=== PATIENT | male | born 1935 | race Caucasian/White ===

== ENCOUNTER 2019-08-28 08:00 | Outpatient (CLI) | payer MEDICARE, MEDICAID | END 2019-08-28 23:59 | disposition home or self-care (01) | LOC: LAB.WCP 08:00 | PROVIDERS: ATTEND Family Medicine | DX: I48.91 Unspecified atrial fibrillation (principal); Z79.01 Long term (current) use of anticoagulants ==

== ENCOUNTER 2019-09-11 08:00 | Outpatient (CLI) | payer MEDICARE, MEDICAID | END 2019-09-11 23:59 | disposition home or self-care (01) | LOC: LAB.WCP 08:00 | PROVIDERS: ATTEND Family Medicine | DX: I48.91 Unspecified atrial fibrillation (principal); Z79.01 Long term (current) use of anticoagulants ==

== ENCOUNTER 2019-09-18 08:00 | Outpatient (CLI) | payer MEDICARE, MEDICAID | END 2019-09-18 23:59 | disposition home or self-care (01) | LOC: LAB.WCP 08:00 | PROVIDERS: ATTEND Family Medicine | DX: I48.91 Unspecified atrial fibrillation (principal); Z79.01 Long term (current) use of anticoagulants ==

== ENCOUNTER 2019-10-01 08:00 | Outpatient (CLI) | payer MEDICARE, MEDICAID | END 2019-10-01 23:59 | disposition home or self-care (01) | LOC: LAB.WCP 08:00 | PROVIDERS: ATTEND Family Medicine | DX: I48.91 Unspecified atrial fibrillation (principal); Z79.01 Long term (current) use of anticoagulants ==

== ENCOUNTER 2019-10-09 08:00 | Outpatient (CLI) | payer MEDICARE, MEDICAID ==
[2019-10-09 12:30] LABS: CALCIUM 8.7 mg/dL (8.5-10.3); CREATININE 2.3 mg/dL (0.6-1.2)
[2019-10-09 12:47] LABS: HB2 TOTAL 12.4 g/dL; HEMOGLOBIN A1C 0.66 g/dL
[2019-10-09 12:53] LABS: CREATININE,URINE 85.2 mg/dL; MICROALBUM/CREATININE RATIO,UR 416.7 ug/mg (<30.0); MICROALBUMIN,URINE 35.5 mg/dL (0-300.0)
== END 2019-10-09 23:59 | disposition home or self-care (01) ==
LOC: LAB.WCP 08:00
PROVIDERS: ATTEND Family Medicine
DX: E11.9 Type 2 diabetes mellitus without complications (principal)
CPT/HCPCS: 36415; 80048; 82043; 82570; 83036

== ENCOUNTER 2019-10-09 15:05 | Outpatient (CLI) | payer MEDICARE, MEDICAID | END 2019-10-09 15:06 | disposition critical access hospital (66) | LOC: EMS 15:05 | PROVIDERS: ATTEND Surgery | DX: R79.89 Other specified abnormal findings of blood chemistry (principal) | CPT/HCPCS: A0425; A0429 ==

== ENCOUNTER 2019-10-09 15:24 | Emergency (ER) | payer MEDICARE, MEDICAID ==
[2019-10-09 15:34] VITALS: BP 117/72
--- NOTE | 2019-10-09 15:34 | ED Physician Documentation ---
History of Present Illness - Stated complaint Stated Complaint: ABN BLOOD WORK - History obtained from History obtained from: Patient, EMS - Additonal information Additional information: Patient is brought to the emergency department by EMS after patient's care facility was notified by primary care physician's office that patient's "creatinine is too low". Medics state that they went back and forth with the retirement staff about whether this was the actual concern, and that they insisted that it was. Patient states he feels "great". He states that he has not had any shortness of breath or generalized weakness. His paperwork reveals that he has a history of chronic renal failure, but he is not on dialysis. Patient denies any vomiting or diarrhea recently no shortness of breath. No cough or fever. No abdominal pain or chest pain. No other complaints at this time. Patient states he has been making urine and that he really needs to urinate at this time. Review of Systems Ten Systems: 10 systems reviewed and negative Constitutional: reports: Reviewed and negative Eyes: reports: Reviewed and negative Ears: reports: Reviewed and negative Nose: reports: Reviewed and negative Throat: reports: Reviewed and negative Cardiac: reports: Reviewed and negative Respiratory: reports: Reviewed and negative GI: reports: Reviewed and negative : reports: Reviewed and negative Skin: reports: Reviewed and negative Musculoskeletal: reports: Reviewed and negative Neurologic: reports: Reviewed and negative Psychiatric: reports: Reviewed and negative Endocrine: reports: Reviewed and negative Immunocompromised: reports: Reviewed and negative PD PAST MEDICAL HISTORY - Allergies Allergies/Adverse Reactions: Allergies Allergy/AdvReac Type Severity Reaction Status Date / Time No Known Drug Allergies Allergy Verified 10/09/19 15:34 PD ED PE NORMAL - Vitals Vital signs reviewed: Yes - General General: No acute distress, Other - HEENT HEENT: Atraumatic, PERRL, EOMI, Moist mucous membranes - Neck Neck: Supple, no meningeal sign - Cardiac Cardiac: RRR, No murmur, Strong equal pulses - Respiratory Respiratory: No respiratory distress, Clear bilaterally - Abdomen Abdomen: Soft, Non tender, Non distended - Derm Derm: Normal color, Warm and dry, No rash - Extremities Extremities: No deformity - Neuro Neuro: Other (Neurologic exam grossly intact. Patient is alert and answers questions appropriately. He appears well.) - Psych Psych: Normal mood, Normal affect Results - Vitals Vitals: Oxygen O2 Source Room air - Labs Labs: Microbiology 10/09/19 15:50 Urine Culture - Preliminary Urine,Catheterized Pseudomonas Aeruginosa Escherichia Coli Laboratory Tests 10/09/19 10/09/19 10/09/19 15:50 17:06 17:06 WBC 7.1 RBC 3.66 L Hgb 11.1 L Hct 33.7 L MCV 92.1 MCH 30.3 MCHC 32.9 RDW 15.0 Plt Count 208 MPV 10.4 Neut # (Auto) 4.2 Lymph # (Auto) 2.0 [place] # (Auto) 0.6 Eos # (Auto) 0.3 Baso # (Auto) 0.0 Absolute Nucleated RBC 0.00 Nucleated RBC % 0.0 Sodium 135 Potassium 4.4 Chloride 107 Carbon Dioxide 21 Anion Gap 7.0 BUN 57 H Creatinine 2.5 H Estimated GFR (MDRD) 25 L Glucose 155 H Calcium 8.6 Total Bilirubin 0.7 AST 11 ALT 14 Alkaline Phosphatase 95 Total Protein 7.5 Albumin 3.5 Globulin 4.0 Albumin/Globulin Ratio 0.9 L Lipase 45 Urine Color YELLOW Urine Clarity HAZY Urine pH 7.0 Ur Specific [place] 1.015 Urine Protein 30 H Urine Glucose (UA) NEGATIVE Urine Ketones TRACE Urine Occult Blood MODERATE H Urine Nitrite POSITIVE H Urine Bilirubin NEGATIVE Urine Urobilinogen 0.2 (NORMAL) Ur Leukocyte Esterase LARGE H Urine RBC 11-25 H Urine WBC >25 H Urine WBC Clumps PRESENT Ur Squamous Epith Cells NONE SEEN Urine Bacteria Many H Ur Microscopic Review INDICATED Urine Culture Comments INDICATED PD MEDICAL DECISION MAKING - ED course Complexity details: reviewed results, re-evaluated patient, considered differential, d/w patient ED course: The patient was extremely well-appearing in the emergency department, and did produce urine, which was dark yellow. I suspected that he was likely somewhat volume depleted. Unfortunately, we had not received communication from the patient's primary care physician prior to the pt's arrival, and the patient's physician was unreachable by phone, despite our calls to his office. We did not have any old records on the patient in terms of prior creatinine levels, so it was unclear exactly what his usual creatinine is, as we were unable to get records from the PCP's office. We received notification from the retirement where the patient resides that his creatinine had been found to be 2.3. The patient did have listed as a diagnosis "chronic renal failure". The patient had blood drawn, but unfortunately, due to extremely difficult peripheral access, we were not able to get an IV. As such, the patient was given a total of 1 quart of oral fluids here in the emergency department, after which he did produce more urine progressively collection systems modeler in color. The blood drawn when the patient arrived was done with great difficulty, and showed a creatinine of 2.5. Pt refused repeat draw for re-eval. However, the patient has been able to drink here and has made urine. The patient already has a diagnosis of chronic renal failure and has no concerning electrolyte abnormalities. He is drinking and making urine. In consideration of all of these factors, I do not feel inpatient stay will be helpful at this point. I have advised the patient's care facility that they need to be sure the patient is getting plenty of water to drink, ideally at least 6 to 8 cups of water per day. He will need to see his primary doctor and have his creatinine rechecked within the week to be sure that it is at least stable if not improving. Departure - Departure Disposition: 01 Home, Self Care Clinical Impression: Dehydration Chronic renal failure Qualifiers: Chronic kidney disease stage: unspecified stage Qualified Code(s): N18.9 - Chronic kidney disease, unspecified Condition: Stable Instructions: ED Renal Failure Chronic, ED Dehydration Comments: Your kidneys today have been found to be functioning somewhat slowly, which is not a new problem for you. Unfortunately, your doctor's office did not send any old laboratory values to the emergency department with which to compare today's values. However, you are producing urine well and there is no evidence that your kidneys are "shut down" and in need of dialysis at this time. It does appear that you have been quite dehydrated. You have been given quite a bit of fluid today in the emergency department to help rehydrate. Is very important that you drink lots of water, and that the staff at your care facility encourages you to drink 6 to 8 cups of water a day, at least. You will need to follow-up with your primary doctor within the next week to have your labs rechecked and be sure that you are returning to your baseline kidney function. Discharge Date/Time: 10/09/19 18:56
[2019-10-09] MEDS ORDERED: SODIUM CHLORIDE 0.9% 1,000 ML IV STA (15:35)
[2019-10-09 15:59] LABS: BILIRUBIN,URINE NEGATIVE (NEGATIVE); GLUCOSE, URINE (UA) NEGATIVE (NEGATIVE); KETONES,URINE (UA) TRACE mg/dL (NEGATIVE); LEUKOCYTE ESTERASE, URINE LARGE (NEGATIVE); NITRITE,URINE POSITIVE (NEGATIVE); OCCULT BLOOD,URINE MODERATE (NEGATIVE); PROTEIN,URINE 30 mg/dL (NEGATIVE); UROBILINOGEN,URINE 0.2 (NORMAL) E.U./dL (NORMAL)
[2019-10-09 16:00] LABS: CLARITY,URINE HAZY (CLEAR)
[2019-10-09 16:11] LABS: BACTERIA,URINE Many /HPF (None Seen); SQUAMOUS EPITHELIAL CELL,UR NONE SEEN (<= Few); WBC CLUMPS,URINE PRESENT
[2019-10-09 17:12] LABS: BASOPHILS % (AUTO) 0.4 %; EOSINOPHILS # (AUTO) 0.3 10^3/uL (0.0-0.7); HGB - HEMOGLOBIN 11.1 g/dL (14.0-18.0); MEAN CORPUSCULAR HEMOGLOBIN 30.3 pg (27.0-31.0); MEAN CORPUSCULAR HGB CONC 32.9 g/dL (32.0-36.0); MEAN CORPUSCULAR VOLUME 92.1 fL (80.0-94.0); MEAN PLATELET VOLUME 10.4 fL (7.4-11.4); MONOCYTES # (AUTO) 0.6 10^3/uL (0.0-1.0); MONOCYTES % (AUTO) 8.6 %; NEUTROPHILS # (AUTO) 4.2 10^3/uL (1.5-6.6); NEUTROPHILS % (AUTO) 58.7 %; PLT - PLATELET COUNT 208 10^3/uL (130-450); RED BLOOD COUNT 3.66 10^6/uL (4.70-6.10); WHITE BLOOD COUNT 7.1 x10^3/uL (4.8-10.8)
[2019-10-09 17:25] LABS: ALBUMIN 3.5 g/dL (3.2-5.5); ALBUMIN/GLOBULIN RATIO 0.9 (1.0-2.2); BILIRUBIN,TOTAL 0.7 mg/dL (0.2-1.0); CALCIUM 8.6 mg/dL (8.5-10.3); CREATININE 2.5 mg/dL (0.6-1.2); TOTAL PROTEIN 7.5 g/dL (6.7-8.2)
== END 2019-10-09 18:56 | disposition home or self-care (01) ==
LOC: EDUNIT# → ED 15:24
DX: E86.0 Dehydration (principal); N18.9 Chronic kidney disease, unspecified
CPT/HCPCS: 36415; 80053; 81001; 81003; 83690; 85025; 87077; 87086; 87181; 99283

== ENCOUNTER 2019-10-13 08:00 | Outpatient (CLI) | payer MEDICARE | END 2019-10-13 23:59 | disposition home or self-care (01) | LOC: LAB.WCP 08:00 | PROVIDERS: ATTEND Family Medicine | DX: Z79.01 Long term (current) use of anticoagulants (principal); I48.91 Unspecified atrial fibrillation ==

== ENCOUNTER 2019-11-14 01:31 | Outpatient (CLI) | payer MEDICARE, MEDICAID | END 2019-11-14 01:32 | disposition critical access hospital (66) | LOC: EMS 01:31 | PROVIDERS: ATTEND Surgery | DX: S00.12XA Contusion of left eyelid and periocular area, initial encounter (principal); W06.XXXA Fall from bed, initial encounter; Y92.092 Bedroom in other non-institutional residence as the place of occurrence of the external cause | CPT/HCPCS: A0425; A0429 ==

== ENCOUNTER 2019-11-14 01:48 | Emergency (ER) | payer MEDICARE, MEDICAID ==
--- NOTE | 2019-11-14 01:56 | ED Physician Documentation ---
PD HPI Fall - Stated complaint Stated Complaint: GLF/CONTUSION L EYEBROW - History obtained from History obtained from: EMS - History of Present Illness Mechanism of injury: Other (fell out of bed) Fall distance: From bed Where injury occurred: Home Timing - onset: How many minutes ago (approximately 20-30 minutes DRAPERY SEWER HAND) Injury(ies) location: Face Pain level now: 0 Associated symptoms: No: AMS, Weakness Contributing factors: Anticoagulated - Additional information Additional information: reportedly fell out of bed, approximately 12-15" height. Patient has dementia and thus cannot contribute reliably to H+P. He says he does not know why he is here, does not recall falling and denies any pain or injury (despite obvious le ft supraorbital swelling).Patient is on warfarin. Review of Systems Unable to obtain: Dementia PD PAST MEDICAL HISTORY - Past Medical History Cardiovascular: Hypertension Neuro: Dementia - Present Medications Home Medications: Ambulatory Orders Medication Instructions Recorded Confirmed Cholecalciferol [Vitamin D3] 1,000 unit PO 11/14/19 Cyanocobalamin (Vitamin B-12) 2,000 mcg SL DAILY 11/14/19 11/14/19 [Vitamin B-12 (1000 mcg sublingual)] Levothyroxine [Synthroid] 100 mcg PO DAILY 11/14/19 11/14/19 Warfarin Sodium 4 mg PO DAILY 11/14/19 11/14/19 metFORMIN [Glucophage] 1,000 mg PO DAILY 11/14/19 11/14/19 - Allergies Allergies/Adverse Reactions: Allergies Allergy/AdvReac Type Severity Reaction Status Date / Time No Known Drug Allergies Allergy Verified 10/09/19 15:34 - Social History Does the pt smoke?: No Smoking Status: Never smoker Does the pt drink ETOH?: No Does the pt have substance abuse?: No - Immunizations Immunizations are current?: Yes - POLST Patient has POLST: No PD ED PE NORMAL - Vitals Vital signs reviewed: Yes - General General: No acute distress, Well developed/nourished, Other (awake, alert, confused. NAD, pleasant and calm) - HEENT HEENT: PERRL, EOMI, Moist mucous membranes - Neck Neck: No bony TTP - Cardiac Cardiac: RRR, No murmur - Respiratory Respiratory: No respiratory distress, Clear bilaterally - Abdomen Abdomen: Soft, Non tender - Back Back: No spinal TTP - Extremities Extremities: No deformity, No tenderness to palpate, Normal ROM s pain PD ED PE EXPANDED - HEENT HEENT Visual: 1 - bruising, swelling, tenderness Results - Vitals Vitals: Vital Signs - 24 hr 11/14/19 11/14/19 01:54 04:42 Temperature 36.4 C L 36.5 C Heart Rate 63 62 Respiratory 18 14 Rate Blood Pressure 153/93 H 135/104 H O2 Saturation 100 98 Oxygen O2 Source Room air - Labs Labs: Laboratory Tests 11/14/19 01:50 PT 40.8 H INR 3.9 H APTT 35.4 H - Rads (name of study) CT head Radiology: Prelim report reviewed, See rad report CT cervical spine Radiology: Prelim report reviewed, See rad report PD MEDICAL DECISION MAKING - ED course Complexity details: reviewed results, re-evaluated patient, considered differential, d/w patient ED course: After CT results available, patient reevaluated. He remains in NAD, pleasant although confused. He is smiling and continues to deny any discomfort. Cervical collar removed. Departure - Departure Disposition: 01 Home, Self Care Clinical Impression: Head injury Qualifiers: Encounter type: initial encounter Qualified Code(s): S09.90XA - Unspecified injury of head, initial encounter Facial contusion Qualifiers: Encounter type: initial encounter Qualified Code(s): S00.83XA - Contusion of other part of head, initial encounter Condition: Good Instructions: ED Head Injury Closed Discharge Date/Time: 11/14/19 04:42
[2019-11-14 02:14] LABS: INR 3.9 (0.8-1.2); PT - PROTHROMBIN TIME 40.8 secs (9.9-12.6)
[2019-11-14 02:22] LABS: PARTIAL THROMBOPLASTIN TIME 35.4 secs (24.9-33.3)
[2019-11-14 04:43] VITALS: BP 135/104
--- NOTE | 2019-11-14 08:10 | CT Report ---
PROCEDURE: HEAD WO INDICATIONS: Trauma, fall, head injury TECHNIQUE: Noncontrast 4.5 mm thick angled axial sections acquired from the foramen magnum to the vertex. For r adiation dose reduction, the following was used: automated exposure control, adjustment of mA and/or kV according to patient size. COMPARISON: None. FINDINGS: Image quality: Excellent. CSF spaces: Basal cisterns are patent. No extra-axial fluid collections. Ventricles are normal in size and shape. Brain: No midline shift. No intracranial masses or hemorrhage. Meléndez-white matter interface is norm al. Skull and face: Left anterior frontal scalp and left periorbital soft tissue edema and hematomas. Horace varium and visualized facial bones are intact, without suspicious lesions. Sinuses: Visualized sinuses and mastoids are clear. IMPRESSION: Left anterior frontal and periorbital soft tissue edema and hematoma. No intraorbital in jury. No acute intracranial finding. Reviewed by: Ross Brown MD on 11/14/2019 8:09 AM PDT Approved by: Ross Brown MD on 11/14/2019 8:09 AM PDT Station ID: [id number]
--- NOTE | 2019-11-14 08:11 | CT Report ---
PROCEDURE: CERVICAL SPINE WO INDICATIONS: fall, head injury, dementia TECHNIQUE: Noncontrast 3 mm thick sections acquired from the skull base to the T4 level. Sagittal and coronal r eformats were then constructed. For radiation dose reduction, the following was used: automated exp osure control, adjustment of mA and/or kV according to patient size. COMPARISON: None. FINDINGS: Image quality: Excellent. Bones: No fractures or dislocations. Visualized superior ribs are intact. Extensive degenerative c hanges in the cervical spine. Soft tissues: Prevertebral soft tissues are normal in thickness. No paravertebral hematomas. No ap ical pneumothoraces. IMPRESSION: No CT evidence of acute or metastatic cervical spine injury. Reviewed by: Ross Brown MD on 11/14/2019 8:10 AM PDT Approved by: Ross Brown MD on 11/14/2019 8:10 AM PDT Station ID: [id number]
== END 2019-11-14 04:42 | disposition home or self-care (01) ==
LOC: EDUNIT# → ED 01:48
DX: S09.90XA Unspecified injury of head, initial encounter (principal); S00.83XA Contusion of other part of head, initial encounter; W06.XXXA Fall from bed, initial encounter; Y92.122 Bedroom in nursing home as the place of occurrence of the external cause; M50.30 Other cervical disc degeneration, unspecified cervical region; F03.90 Unspecified dementia, unspecified severity, without behavioral disturbance, psychotic disturbance, mood disturbance, and anxiety; Z79.01 Long term (current) use of anticoagulants
CPT/HCPCS: 36415; 70450; 72125; 85610; 85730; 99281; 99284

== ENCOUNTER 2019-11-14 04:44 | Outpatient (CLI) | payer MEDICARE, MEDICAID | END 2019-11-14 04:45 | disposition home or self-care (01) | LOC: EMS 04:44 | PROVIDERS: ATTEND Surgery | DX: S00.12XA Contusion of left eyelid and periocular area, initial encounter (principal); R53.1 Weakness; F03.90 Unspecified dementia, unspecified severity, without behavioral disturbance, psychotic disturbance, mood disturbance, and anxiety; W18.30XA Fall on same level, unspecified, initial encounter | CPT/HCPCS: A0425; A0428 ==

== ENCOUNTER 2019-11-21 08:00 | Outpatient (CLI) | payer MEDICARE, MEDICAID | END 2019-11-21 23:59 | disposition home or self-care (01) | LOC: LAB.R 08:00 | PROVIDERS: ATTEND Family Medicine | DX: N39.0 Urinary tract infection, site not specified (principal) | CPT/HCPCS: 87086; 87181 ==

== ENCOUNTER 2019-11-28 10:45 | Outpatient (CLI) | payer MEDICARE, MEDICAID ==
[2019-11-28 18:21] LABS: BASOPHILS # (AUTO) 0.1 10^3/uL (0.0-0.1); BASOPHILS % (AUTO) 0.6 %; EOSINOPHILS # (AUTO) 0.3 10^3/uL (0.0-0.7); EOSINOPHILS % (AUTO) 2.8 %; HGB - HEMOGLOBIN 11.6 g/dL (14.0-18.0); LYMPHOCYTES # (AUTO) 1.7 10^3/uL (1.5-3.5); LYMPHOCYTES % (AUTO) 19.6 %; MEAN CORPUSCULAR HEMOGLOBIN 29.7 pg (27.0-31.0); MEAN CORPUSCULAR HGB CONC 31.1 g/dL (32.0-36.0); MEAN CORPUSCULAR VOLUME 95.4 fL (80.0-94.0); MEAN PLATELET VOLUME 10.8 fL (7.4-11.4); MONOCYTES # (AUTO) 0.6 10^3/uL (0.0-1.0); MONOCYTES % (AUTO) 6.3 %; NEUTROPHILS # (AUTO) 6.2 10^3/uL (1.5-6.6); NEUTROPHILS % (AUTO) 70.1 %; PLT - PLATELET COUNT 381 10^3/uL (130-450); RED BLOOD COUNT 3.91 10^6/uL (4.70-6.10); RED CELL DISTRIBUTION WIDTH 14.8 % (12.0-15.0); WHITE BLOOD COUNT 8.9 x10^3/uL (4.8-10.8)
[2019-11-28 18:50] LABS: PT - PROTHROMBIN TIME 48.5 secs (9.9-12.6)
[2019-11-28 18:54] LABS: ALBUMIN 3.6 g/dL (3.2-5.5); ALBUMIN/GLOBULIN RATIO 0.8 (1.0-2.2); BILIRUBIN,TOTAL 0.8 mg/dL (0.2-1.0); CALCIUM 9.7 mg/dL (8.5-10.3); CREATININE 2.3 mg/dL (0.6-1.2)
[2019-11-28 20:08] LABS: INR 4.8 (0.8-1.2)
== END 2019-11-28 23:59 | disposition home or self-care (01) ==
LOC: LAB.R 10:45
PROVIDERS: ATTEND Family Medicine
DX: C61 Malignant neoplasm of prostate (principal)
CPT/HCPCS: 80053; 85025; 85610

== ENCOUNTER 2020-02-20 10:30 | Outpatient (CLI) | payer MEDICARE, MEDICAID ==
[2020-02-20 11:56] LABS: BILIRUBIN,URINE NEGATIVE (NEGATIVE); GLUCOSE, URINE (UA) NEGATIVE (NEGATIVE); KETONES,URINE (UA) NEGATIVE (NEGATIVE); LEUKOCYTE ESTERASE, URINE LARGE (NEGATIVE); NITRITE,URINE POSITIVE (NEGATIVE); OCCULT BLOOD,URINE LARGE (NEGATIVE); PH,URINE 5.5 PH (5.0-7.5); PROTEIN,URINE 30 mg/dL (NEGATIVE); UROBILINOGEN,URINE 0.2 (NORMAL) E.U./dL (NORMAL)
[2020-02-20 11:57] LABS: CLARITY,URINE CLOUDY (CLEAR)
[2020-02-20 12:04] LABS: BACTERIA,URINE Moderate /HPF (None Seen); RBC,URINE TNTC /HPF (0-5); SQUAMOUS EPITHELIAL CELL,UR RARE Squamous (<= Few)
== END 2020-02-20 23:59 | disposition home or self-care (01) ==
LOC: LAB.R 10:30
PROVIDERS: ATTEND Urology
DX: N39.0 Urinary tract infection, site not specified (principal)
CPT/HCPCS: 81001; 81003; 87077; 87086; 87181

== ENCOUNTER 2020-02-26 10:45 | Outpatient (CLI) | payer MEDICARE, MEDICAID ==
[2020-02-26 18:57] LABS: GLUCOSE, URINE (UA) NEGATIVE (NEGATIVE); KETONES,URINE (UA) NEGATIVE (NEGATIVE); LEUKOCYTE ESTERASE, URINE LARGE (NEGATIVE); NITRITE,URINE POSITIVE (NEGATIVE); OCCULT BLOOD,URINE LARGE (NEGATIVE); PROTEIN,URINE 100 mg/dL (NEGATIVE); UROBILINOGEN,URINE 0.2 (NORMAL) E.U./dL (NORMAL)
[2020-02-26 18:59] LABS: CLARITY,URINE HAZY (CLEAR)
[2020-02-26 19:05] LABS: BILIRUBIN,URINE NEGATIVE (NEGATIVE); ICTOTEST,URINE NEGATIVE
[2020-02-26 19:48] LABS: BACTERIA,URINE Few /HPF (None Seen); RBC,URINE TNTC /HPF (0-5); SQUAMOUS EPITHELIAL CELL,UR NONE SEEN (<= Few)
== END 2020-02-26 23:59 | disposition home or self-care (01) ==
LOC: LAB.R 10:45
PROVIDERS: ATTEND Nurse Practitioner Adult Health
DX: N39.0 Urinary tract infection, site not specified (principal)
CPT/HCPCS: 81001; 81003; 87077; 87086; 87181

== ENCOUNTER 2020-03-03 22:47 | Outpatient (CLI) | payer MEDICARE, MEDICAID | END 2020-03-03 22:48 | disposition critical access hospital (66) | LOC: EMS 22:47 | PROVIDERS: ATTEND Surgery | DX: S09.90XA Unspecified injury of head, initial encounter (principal); W01.0XXA Fall on same level from slipping, tripping and stumbling without subsequent striking against object, initial encounter | CPT/HCPCS: A0425; A0429 ==

== ENCOUNTER 2020-03-03 23:05 | Emergency (ER) | payer MEDICARE, MEDICAID ==
--- NOTE | 2020-03-03 23:15 | ED Physician Documentation ---
PD HPI HEAD INJURY - Stated complaint Stated Complaint: GLF/ HEAD INJ - History obtained from History obtained from: EMS - History of Present Illness Mechanism of head injury: Fell Where head injury occurred: Home Timing - onset: Today Location of injury: Back Quality of pain: Pain Associated symptoms: Neck pain. No: LOC, AMS, Amnesia, Nausea / vomiting, Paresthesias, Seizures, Ear drainage, Nasal drainage Symptoms improve with: Rest Symptoms worsen with: Palpation, Movement Contributing factors: Anticoagulated Similar symptoms before: Diagnosis (mechanical fall) Recently seen: Not recently seen - Additional information Additional information: 84-year-old male resident of [facility] with a history of advanced dementia has had a witnessed fall this evening he apparently tripped over his Del Rosario bag and landed on the back of his head. He did not have loss of consciousness he is on Coumadin and he is brought to the hospital for evaluation. The patient himself says he does not have any specific symptoms. Review of Systems Unable to obtain: Dementia PD PAST MEDICAL HISTORY - Past Medical History Cardiovascular: Hypertension Neuro: Dementia - Present Medications Home Medications: Ambulatory Orders Medication Instructions Recorded Confirmed Cholecalciferol [Vitamin D3] 1,000 unit PO 11/14/19 Cyanocobalamin (Vitamin B-12) 2,000 mcg SL DAILY 11/14/19 11/14/19 [Vitamin B-12 (1000 mcg sublingual)] Levothyroxine [Synthroid] 100 mcg PO DAILY 11/14/19 03/03/20 Warfarin Sodium 4 mg PO DAILY 11/14/19 03/03/20 Glipizide 5 mg PO DAILY 03/03/20 03/03/20 Nitrofurantoin [Macrobid] 100 mg PO BID 03/03/20 03/03/20 - Allergies Allergies/Adverse Reactions: Allergies Allergy/AdvReac Type Severity Reaction Status Date / Time No Known Drug Allergies Allergy Verified 03/03/20 23:22 - Social History Does the pt smoke?: No Smoking Status: Never smoker Does the pt drink ETOH?: No Does the pt have substance abuse?: No - Immunizations Immunizations are current?: Yes - POLST Patient has POLST: No PD ED PE NORMAL - Vitals Vital signs reviewed: Yes - General General: No acute distress, Well developed/nourished - HEENT HEENT: PERRL, EOMI, Other (mild pain to palpation of the occiput) - Neck Neck: Supple, no meningeal sign, Other (tenderness to the upper C-spine or pain with hair pulling) - Cardiac Cardiac: No murmur, Other (irreguarly irregular heart ) - Respiratory Respiratory: No respiratory distress, Clear bilaterally - Abdomen Abdomen: Normal bowel sounds, Soft, Non tender, Non distended, No organomegaly - Back Back: No CVA TTP, No spinal TTP - Derm Derm: Normal color, Warm and dry, No rash - Extremities Extremities: No deformity, No edema - Neuro Neuro: photo finish photographer 2-12 intact, No motor deficit, No sensory deficit, Normal speech Eye Opening: Spontaneous Motor: Obeys Commands Verbal: Confused GCS Score: 14 - Psych Psych: Normal mood, Normal affect Results - Vitals Vitals: Vital Signs - 24 hr 03/03/20 03/03/20 23:17 23:32 Temperature 36.3 C L 36.3 C L Heart Rate 66 66 Respiratory 18 18 Rate Blood Pressure 159/100 H 159/100 H O2 Saturation 98 98 Oxygen O2 Source Room air - Labs Labs: Laboratory Tests 03/03/20 03/03/20 03/03/20 23:17 23:17 23:17 WBC 7.2 RBC 3.40 L Hgb 9.7 L Hct 32.4 L MCV 95.3 H MCH 28.5 MCHC 29.9 L RDW 15.2 H Plt Count 192 MPV 11.0 Neut # (Auto) 4.8 Lymph # (Auto) 1.4 L [place] # (Auto) 0.8 Eos # (Auto) 0.3 Baso # (Auto) 0.0 Absolute Nucleated RBC 0.00 Nucleated RBC % 0.0 PT 36.1 H INR 3.5 H Sodium 141 Potassium 4.4 Chloride 114 H Carbon Dioxide 17 L Anion Gap 10.0 BUN 64 H Creatinine 2.9 H Estimated GFR (MDRD) 21 L Glucose 139 H Calcium 8.6 Total Bilirubin 0.7 AST 11 ALT 13 Alkaline Phosphatase 125 H Total Protein 7.2 Albumin 3.5 Globulin 3.7 Albumin/Globulin Ratio 0.9 L Lipase 32 Urine Color Urine Clarity Urine pH Ur Specific [place] Urine Protein Urine Glucose (UA) Urine Ketones Urine Occult Blood Urine Nitrite Urine Bilirubin Urine Urobilinogen Ur Leukocyte Esterase Urine RBC Urine WBC Ur Squamous Epith Cells Urine Bacteria Ur Microscopic Review Urine Culture Comments 03/04/20 00:01 WBC RBC Hgb Hct MCV MCH MCHC RDW Plt Count MPV Neut # (Auto) Lymph # (Auto) [place] # (Auto) Eos # (Auto) Baso # (Auto) Absolute Nucleated RBC Nucleated RBC % PT INR Sodium Potassium Chloride Carbon Dioxide Anion Gap BUN Creatinine Estimated GFR (MDRD) Glucose Calcium Total Bilirubin AST ALT Alkaline Phosphatase Total Protein Albumin Globulin Albumin/Globulin Ratio Lipase Urine Color YELLOW Urine Clarity HAZY Urine pH 6.0 Ur Specific [place] 1.020 Urine Protein 30 H Urine Glucose (UA) NEGATIVE Urine Ketones NEGATIVE Urine Occult Blood LARGE H Urine Nitrite POSITIVE H Urine Bilirubin NEGATIVE Urine Urobilinogen 0.2 (NORMAL) Ur Leukocyte Esterase LARGE H Urine RBC 11-25 H Urine WBC >25 H Ur Squamous Epith Cells RARE Squamous Urine Bacteria Many H Ur Microscopic Review INDICATED Urine Culture Comments INDICATED - Rads (name of study) CT head without Radiology: Prelim report reviewed (Impression: No acute intracranial findings. Chronic changes as described.), EMP read indepedently, See rad report CT cervical spine Radiology: Prelim report reviewed (Impression: No fracture or dislocation. Degenerative changes.), EMP read indepedently, See rad report PD MEDICAL DECISION MAKING - ED course Complexity details: reviewed old records, reviewed results, re-evaluated patient, considered differential, d/w patient ED course: 84-year-old mild male on Coumadin for atrial fibrillation has had a fall striking the back of his head without loss of consciousness there is no evidence of hemorrhage on CT scan no evidence of fracture on CT scan of the cervical spine. The patient does have an indwelling Del Rosario catheter and he has evidence of chronic infection and a culture is being obtained. He is on nitrofurantoin. He appears mildly dehydrated and he is administered oral fluids.He has had a mechanical fall witnessed when he tripped on his Del Rosario catheter and he has no evidence of hemorrhage. He is discharged back to home place with a pending culture of the urine. Departure - Departure Disposition: 01 Home, Self Care Clinical Impression: Dehydration Head injury Qualifiers: Encounter type: initial encounter Qualified Code(s): S09.90XA - Unspecified injury of head, initial encounter Condition: Stable Instructions: ED Dehydration, ED Head Injury Closed Follow-Up: CRESCENCIO ELIZALDE MD [Provider Admit Priv/Credential] - Comments: Today a culture of your urine has been obtained and the results can help guide treatment follow up with your primary for results. Today you are again dehydrated and extra fluids are indicated. Try to drink 6-8 glasses of water per day. Discharge Date/Time: 03/04/20 01:38
[2020-03-03 23:20] LABS: BASOPHILS % (AUTO) 0.3 %; EOSINOPHILS # (AUTO) 0.3 10^3/uL (0.0-0.7); EOSINOPHILS % (AUTO) 3.9 %; HGB - HEMOGLOBIN 9.7 g/dL (14.0-18.0); LYMPHOCYTES # (AUTO) 1.4 10^3/uL (1.5-3.5); LYMPHOCYTES % (AUTO) 19.4 %; MEAN CORPUSCULAR HEMOGLOBIN 28.5 pg (27.0-31.0); MEAN CORPUSCULAR HGB CONC 29.9 g/dL (32.0-36.0); MEAN CORPUSCULAR VOLUME 95.3 fL (80.0-94.0); MONOCYTES # (AUTO) 0.8 10^3/uL (0.0-1.0); MONOCYTES % (AUTO) 10.5 %; NEUTROPHILS # (AUTO) 4.8 10^3/uL (1.5-6.6); NEUTROPHILS % (AUTO) 65.8 %; PLT - PLATELET COUNT 192 10^3/uL (130-450); RED CELL DISTRIBUTION WIDTH 15.2 % (12.0-15.0); WHITE BLOOD COUNT 7.2 x10^3/uL (4.8-10.8)
[2020-03-03 23:22] VITALS: BP 159/100
[2020-03-03 23:26] LABS: INR 3.5 (0.8-1.2); PT - PROTHROMBIN TIME 36.1 secs (9.9-12.6)
[2020-03-03 23:34] LABS: ALBUMIN 3.5 g/dL (3.2-5.5); ALBUMIN/GLOBULIN RATIO 0.9 (1.0-2.2); BILIRUBIN,TOTAL 0.7 mg/dL (0.2-1.0); CALCIUM 8.6 mg/dL (8.5-10.3); CREATININE 2.9 mg/dL (0.6-1.2); TOTAL PROTEIN 7.2 g/dL (6.7-8.2)
[2020-03-03] MEDS ORDERED: SODIUM CHLORIDE 0.9% 1,000 ML IV STA (23:54)
[2020-03-04 00:10] LABS: BILIRUBIN,URINE NEGATIVE (NEGATIVE); GLUCOSE, URINE (UA) NEGATIVE (NEGATIVE); KETONES,URINE (UA) NEGATIVE (NEGATIVE); LEUKOCYTE ESTERASE, URINE LARGE (NEGATIVE); NITRITE,URINE POSITIVE (NEGATIVE); OCCULT BLOOD,URINE LARGE (NEGATIVE); PROTEIN,URINE 30 mg/dL (NEGATIVE); UROBILINOGEN,URINE 0.2 (NORMAL) E.U./dL (NORMAL)
[2020-03-04 00:11] LABS: CLARITY,URINE HAZY (CLEAR)
[2020-03-04 00:44] LABS: BACTERIA,URINE Many /HPF (None Seen); SQUAMOUS EPITHELIAL CELL,UR RARE Squamous (<= Few)
--- NOTE | 2020-03-04 07:28 | CT Report ---
PROCEDURE: HEAD WO INDICATIONS: polytrauma, critical, head and neck injury suspect TECHNIQUE: Noncontrast 4.5 mm thick angled axial sections acquired from the foramen magnum to the vertex. For r adiation dose reduction, the following was used: automated exposure control, adjustment of mA and/or kV according to patient size. COMPARISON: 11/14/2019 FINDINGS: Image quality: Excellent. CSF spaces: Basal cisterns are patent. Small right frontal-parietal subdural hygromas stable compare d to the prior exam. The ventricles are symmetric in size and shape. Brain: No intracranial bleeds or masses. There is cerebral volume loss for age, with resultant vent ricular and sulcal prominence. There are periventricular and deep white matter chronic small vessel ischemic changes. There is intracranial internal carotid artery and vertebral artery atherosclerosis . Skull and face: Calvarium and visualized facial bones appear intact, without suspicious lesions. Sinuses: Visualized sinuses and mastoids are clear. IMPRESSION: No acute intracranial disease process. Reviewed by: Halie Davila MD, PhD on 03/04/2020 7:27 AM PST Approved by: Halie Davila MD, PhD on 03/04/2020 7:27 AM PST Station ID: [id number]
--- NOTE | 2020-03-04 08:05 | CT Report ---
PROCEDURE: CERVICAL SPINE WO INDICATIONS: polytrauma, critical, head and neck inury suspecte TECHNIQUE: Noncontrast 3 mm thick sections acquired from the skull base to the T4 level. Sagittal and coronal r eformats were then constructed. For radiation dose reduction, the following was used: automated exp osure control, adjustment of mA and/or kV according to patient size. COMPARISON: None. FINDINGS: Image quality: Excellent. Bones: No fractures or dislocations. Visualized superior ribs are intact. Spine degenerative disc d isease and facet arthropathy are noted. Soft tissues: Prevertebral soft tissues are normal in thickness. No paravertebral hematomas. No ap ical pneumothoraces. IMPRESSION: No fracture. No acute osseous lesion. If there is continued clinical concern for pathology, then MRI should be considered for further evaluation. Reviewed by: Halie Davila MD, PhD on 03/04/2020 8:03 AM PST Approved by: Halie Davila MD, PhD on 03/04/2020 8:03 AM PST Station ID: [id number]
== END 2020-03-04 01:38 | disposition home or self-care (01) ==
LOC: EDUNIT# → EDBD → ED 23:05
DX: S09.90XA Unspecified injury of head, initial encounter (principal); W01.0XXA Fall on same level from slipping, tripping and stumbling without subsequent striking against object, initial encounter; Y93.01 Activity, walking, marching and hiking; Y92.099 Unspecified place in other non-institutional residence as the place of occurrence of the external cause; E86.0 Dehydration; N39.0 Urinary tract infection, site not specified; M50.30 Other cervical disc degeneration, unspecified cervical region; I48.91 Unspecified atrial fibrillation; Z79.01 Long term (current) use of anticoagulants; I10 Essential (primary) hypertension; F03.90 Unspecified dementia, unspecified severity, without behavioral disturbance, psychotic disturbance, mood disturbance, and anxiety
CPT/HCPCS: 36415; 70450; 72125; 80053; 81001; 81003; 83690; 85025; 85610; 87077; 87086; 87181; 99284

== ENCOUNTER 2020-03-04 01:40 | Outpatient (CLI) | payer MEDICARE, MEDICAID | END 2020-03-04 01:41 | disposition home or self-care (01) | LOC: EMS 01:40 | PROVIDERS: ATTEND Surgery | DX: R41.0 Disorientation, unspecified (principal) | CPT/HCPCS: A0425; A0428 ==

== ENCOUNTER 2020-03-09 06:46 | Outpatient (CLI) | payer MEDICARE, MEDICAID | END 2020-03-09 06:47 | disposition critical access hospital (66) | LOC: EMS 06:46 | PROVIDERS: ATTEND Surgery | DX: Z04.3 Encounter for examination and observation following other accident (principal) ==

== ENCOUNTER 2020-03-09 07:40 | Emergency (ER) | payer MEDICARE, MEDICAID ==
[2020-03-09 07:58] VITALS: BP 156/87
--- NOTE | 2020-03-09 08:11 | ED Physician Documentation ---
History of Present Illness - Stated complaint Stated Complaint: GLF - Chief complaint Chief Complaint: General - History obtained from History obtained from: Family (AMAIRANI Dodge), EMS - Additonal information Additional information: 84-year-old man on anticoagulation, past medical history diabetes presents with multiple hypoglycemic episodes over the past couple weeks. Per EMS, he had a ground-level fall with possible head trauma, no LOC and was found to have glucose of 33 on arrival. Dextrose was given with improvement in mental status on route. Per AMAIRANI Dodge He has had multiple hypoglycemic episodes recently and his doctors at the memory care facility are trying to keep his glucose in check. Patient denies pain anywhere. Further history limited by patient dementia. He is AO x2, per Dar this is his baseline. Review of Systems Unable to obtain: Dementia PD PAST MEDICAL HISTORY - Past Medical History Cardiovascular: Hypertension Neuro: Dementia - Present Medications Home Medications: Ambulatory Orders Medication Instructions Recorded Confirmed Cholecalciferol [Vitamin D3] 1,000 unit PO 11/14/19 Cyanocobalamin (Vitamin B-12) 2,000 mcg SL DAILY 11/14/19 11/14/19 [Vitamin B-12 (1000 mcg sublingual)] Levothyroxine [Synthroid] 100 mcg PO DAILY 11/14/19 03/03/20 Warfarin Sodium 4 mg PO DAILY 11/14/19 03/03/20 Glipizide 5 mg PO DAILY 03/03/20 03/03/20 Nitrofurantoin [Macrobid] 100 mg PO BID 03/03/20 03/03/20 - Allergies Allergies/Adverse Reactions: Allergies Allergy/AdvReac Type Severity Reaction Status Date / Time No Known Drug Allergies Allergy Verified 03/09/20 07:58 - Social History Does the pt smoke?: No Smoking Status: Never smoker Does the pt drink ETOH?: No Does the pt have substance abuse?: No - Immunizations Immunizations are current?: Yes - POLST Patient has POLST: No PD ED PE NORMAL - Vitals Vital signs reviewed: Yes - General General: No acute distress, Well developed/nourished, Other (AOX2) - HEENT HEENT: Atraumatic, PERRL, EOMI, Moist mucous membranes, Dentition benign - Neck Neck: No bony TTP - Cardiac Cardiac: RRR - Respiratory Respiratory: No respiratory distress, Clear bilaterally - Abdomen Abdomen: Non tender, Non distended, Other (pelvis stable ) - Male Male : Other (hernandez in place with straw colored urine. 600cc in bag) - Rectal Rectal: Deferred - Back Back: No spinal TTP - Derm Derm: Normal color, Warm and dry - Extremities Extremities: No deformity, No tenderness to palpate, Normal ROM s pain - Neuro Neuro: policy value calculator 2-12 intact, No motor deficit, No sensory deficit, Other (mild dysarthria) - Psych Psych: Normal mood, Normal affect Results - Vitals Vitals: Vital Signs - 24 hr 03/09/20 07:40 Temperature 36.2 C L Heart Rate 70 Respiratory 18 Rate Blood Pressure 156/87 H O2 Saturation 100 Oxygen O2 Source Room air PD MEDICAL DECISION MAKING - ED course Complexity details: reviewed results, re-evaluated patient, d/w patient, d/w family ED course: 84-year-old man with recurrent hypoglycemic episodes, dementia, comfort measures only per daughter Dar who is power of criminal attorney.Discussed benefits and drawbac ks of lab work, head CT and further testing and it was agreed that since he is at baseline and has a good explanation for his confusion (hypoglycemia), it is best to discharge him home to his memory care facility with goal of maintaining his comfort as a priority. Possibility of brain bleed or further traumatic injury discussed with POA who understands the repercussions and would like to pursue comfort measures only per his wishes. Return precautions given. She will d/w memory care facility about need for glucose control. Departure - Departure Disposition: 01 Home, Self Care Clinical Impression: Hypoglycemia, Fall from standing Condition: Stable Instructions: ED Diabetes Hypoglycemia Oral Agent Comments: I spoke with Dar, Mr. Guajardo's power of criminal attorney who stated that he has a goal of care of comfort measures only. Because of this, he will not benefit from further work-up in the emergency department. His glucose has improved after receiving IV dextrose by EMS. Initially it was 33 and now it is 136. He is fe eling well and should follow up with his doctor at the memory care facility. We discussed that he should return for any new or worsening symptoms of concern.
--- NOTE | 2020-03-09 08:31 | XRAY Report ---
PROCEDURE: Chest 1 View X-Ray INDICATIONS: FALL TODAY ALTERED MENTAL STATUS TECHNIQUE: One view of the chest was acquired. COMPARISON: None FINDINGS: Surgical changes and devices: None. Lungs and pleura: No pleural effusions or pneumothorax. Lungs are clear. Mild elevation of right h emidiaphragm is seen. Mediastinum: Mediastinal contours appear normal. Heart size is normal. Bones and chest wall: No suspicious bony lesions. Overlying soft tissues appear unremarkable. IMPRESSION: No acute cardiopulmonary pathology. Reviewed by: Robbie Reina MD on 03/09/2020 8:30 AM [facility] Approved by: Robbie Reina MD on 03/09/2020 8:30 AM [facility] Station ID: [id number]
--- NOTE | 2020-03-09 08:31 | XRAY Report ---
PROCEDURE: Pelvis 1 View INDICATIONS: FALL TODAY ALTERED MENTAL STATUS TECHNIQUE: 2 view(s) of the pelvis acquired. COMPARISON: None. FINDINGS: Bones: No fractures or dislocations. Bilateral hip joint osteoarthritic changes are seen. No eviden ce of avascular necrosis of femoral head. No suspicious bony lesions. Soft tissues: Visualized bowel gas pattern is normal. No suspicious soft tissue calcifications. IMPRESSION: No gross acute pelvic fracture or dislocation. Bilateral hip joint osteoarthritis. No tony dence of avascular necrosis. Reviewed by: Robbie Reina MD on 03/09/2020 8:29 AM PST Approved by: Robbie Reina MD on 03/09/2020 8:29 AM PST Station ID: [id number]
== END 2020-03-09 09:27 | disposition home or self-care (01) ==
LOC: EDUNIT# → ED 07:40
DX: E11.649 Type 2 diabetes mellitus with hypoglycemia without coma (principal); Z79.84 Long term (current) use of oral hypoglycemic drugs; Z91.81 History of falling; S06.9X1A Unspecified intracranial injury with loss of consciousness of 30 minutes or less, initial encounter; W07.XXXA Fall from chair, initial encounter; Y92.129 Unspecified place in nursing home as the place of occurrence of the external cause; I10 Essential (primary) hypertension; M16.0 Bilateral primary osteoarthritis of hip; F03.90 Unspecified dementia, unspecified severity, without behavioral disturbance, psychotic disturbance, mood disturbance, and anxiety; Z79.01 Long term (current) use of anticoagulants
CPT/HCPCS: 99281; 99283

== ENCOUNTER 2020-03-09 09:32 | Outpatient (CLI) | payer MEDICARE, MEDICAID | END 2020-03-09 09:33 | disposition home or self-care (01) | LOC: EMS 09:32 | PROVIDERS: ATTEND Surgery | DX: R53.1 Weakness (principal); Z91.81 History of falling ==

== ENCOUNTER 2020-03-09 13:41 | Outpatient (CLI) | payer MEDICARE, MEDICAID | END 2020-03-09 13:42 | disposition critical access hospital (66) | LOC: EMS 13:41 | PROVIDERS: ATTEND Surgery | DX: R55 Syncope and collapse (principal); M25.551 Pain in right hip; M25.521 Pain in right elbow; Z04.3 Encounter for examination and observation following other accident | CPT/HCPCS: A0425; A0428; A0429 ==

== ENCOUNTER 2020-03-09 13:59 | Emergency (ER) | payer MEDICARE, MEDICAID ==
[2020-03-09 14:11] VITALS: BP 142/71
--- NOTE | 2020-03-09 14:24 | ED Physician Documentation ---
History of Present Illness - Stated complaint Stated Complaint: GLF - History obtained from History obtained from: Family - Additonal information Additional information: 84-year-old man seen here this morning for fall presents again for fall after being discharged to his long-term care facility. EMS reported that he fell from a chair, hitting his head with possible LOC for 10 seconds. When I call his healthcare proxy Dar she states that she discussed with EMS and said she was comfortable keeping him at the facility and not bring him back into the hospital given the priority for comfort care only. She asked about his sugar and they said that he had just eaten. d/w RN from [facility] . utility bill complaints investigator Leticia states the patient fell from chair and hit his head on floor and lost consciousness twice. Leticia confirms over the phone that he is comfort measures only. She states another RN - Harjit sent him for evaluation. She will speak with her and to her knowledge there is no impediment to sending him back at this time. Review of Systems Unable to obtain: Dementia PD PAST MEDICAL HISTORY - Past Medical History Past Medical History: Yes Cardiovascular: Hypertension Neuro: Dementia - Past Surgical History Past Surgical History: Yes - Present Medications Home Medications: Ambulatory Orders Medication Instructions Recorded Confirmed Cholecalciferol [Vitamin D3] 1,000 unit PO 11/14/19 Cyanocobalamin (Vitamin B-12) 2,000 mcg SL DAILY 11/14/19 11/14/19 [Vitamin B-12 (1000 mcg sublingual)] Levothyroxine [Synthroid] 100 mcg PO DAILY 11/14/19 03/03/20 Warfarin Sodium 4 mg PO DAILY 11/14/19 03/03/20 Glipizide 5 mg PO DAILY 03/03/20 03/03/20 Nitrofurantoin [Macrobid] 100 mg PO BID 03/03/20 03/03/20 - Allergies Allergies/Adverse Reactions: Allergies Allergy/AdvReac Type Severity Reaction Status Date / Time No Known Drug Allergies Allergy Verified 03/09/20 14:05 - Social History Does the pt smoke?: No Smoking Status: Never smoker Does the pt drink ETOH?: No Does the pt have substance abuse?: No - Immunizations Immunizations are current?: Yes - POLST Patient has POLST: No PD ED PE NORMAL - Vitals Vital signs reviewed: Yes - General General: Other (AOX2) - HEENT HEENT: Atraumatic, PERRL, EOMI - Neck Neck: No bony TTP - Cardiac Cardiac: RRR - Respiratory Respiratory: No respiratory distress - Abdomen Abdomen: Non tender, Non distended - Male Male : Deferred - Rectal Rectal: Deferred - Back Back: No spinal TTP - Derm Derm: Normal color, Warm and dry - Extremities Extremities: No deformity - Neuro Neuro: Other (AOX2) - Psych Psych: Normal mood, Normal affect Results - Vitals Vitals: Vital Signs - 24 hr 03/09/20 03/09/20 14:05 14:10 Temperature 36.5 C 36.5 C Heart Rate 72 72 Respiratory 18 18 Rate Blood Pressure 142/71 H 142/71 H O2 Saturation 99 99 Oxygen O2 Source Room air PD MEDICAL DECISION MAKING - ED course Complexity details: re-evaluated patient, d/w family, other (d/w RN at [facility]. patient okay to send home at this time) ED course: 84-year-old man with recent frequent falls and multiple hypoglycemic episodes presents with fall again today at detention, seen earlier in the day and discharged back to [facility] but then he fell again. Discussed with daughter who states she requested they not bring him back to the ED. d/w RN at his facility who states he can go home at this time. Departure - Departure Disposition: 01 Home, Self Care Clinical Impression: Encounter for medical screening examination, Fall from standing Condition: Stable Instructions: Falls Risks Prevent Comments: To please call the healthcare proxy for this patient before bringing him back into the emergency department. According to his healthcare proxy he is comfort measures only. This means that we will prioritizes comfort and it was discussed already that he would not benefit from a head CT since he would not wish to und ergo surgery if he had bleeding in the brain. Make sure to keep a close eye on his blood sugar because it has been low frequently over the past couple weeks. Make sure that he is eating a healthy regular diet. Call the ED if you have other concerns.
== END 2020-03-09 15:10 | disposition home or self-care (01) ==
LOC: EDUNIT# → ED 13:59
DX: S06.9X1A Unspecified intracranial injury with loss of consciousness of 30 minutes or less, initial encounter (principal); W07.XXXA Fall from chair, initial encounter; Y92.129 Unspecified place in nursing home as the place of occurrence of the external cause; I10 Essential (primary) hypertension; F03.90 Unspecified dementia, unspecified severity, without behavioral disturbance, psychotic disturbance, mood disturbance, and anxiety

== ENCOUNTER 2020-03-09 15:10 | Outpatient (CLI) | payer MEDICARE, MEDICAID | END 2020-03-09 15:11 | disposition home or self-care (01) | LOC: EMS 15:10 | PROVIDERS: ATTEND Surgery | DX: R53.1 Weakness (principal); Z91.81 History of falling | CPT/HCPCS: A0425; A0427; A0428 ==